=== PATIENT | female | born 1955 | race Caucasian/White ===

== ENCOUNTER 2018-12-25 09:37 | Day surgery (SDC) | payer OTHER ==
[~2018-12-25 09:37] MED LIST: HYDROCHLOROTHIA25 MG PO; LISINOP PO; PROSOM PO; SYNTHROID75 MCG PO; ZOCOR40 MG PO
== END 2018-12-25 17:30 | disposition home or self-care (01) ==
LOC: CIR.AMB 09:37
DX: M50.11 Cervical disc disorder with radiculopathy, high cervical region (principal)